=== PATIENT | male | born 1980 | race Caucasian/White ===

== ENCOUNTER 2016-10-11 20:11 | Emergency (ER) | payer BC ==
[2016-10-11 20:18] VITALS: BP 144/74
[2016-10-11] MEDS ORDERED: Lidocaine/Epineph/Tetraca SOL* (LET solution) 4 ML BTL TOPICAL ONE ×2 (20:25→20:31)
--- NOTE | 2016-10-11 20:27 | ED ---
Laceration/Wound HPI - HPI Summary HPI Summary: 36 year old male presents with right hand laceration secondary to a plate. - History of Current Complaint Stated Complaint: HAND LAC Time Seen by Provider: 10/11/16 20:19 - Additional Pertinent History Primary Care Physician: TERE - Allergy/Home Medications Allergies/Adverse Reactions: Allergies Allergy/AdvReac Type Severity Reaction Status Date / Time No Known Allergies Allergy Verified 10/11/16 20:18 PMH/Surg Hx/FS Hx/Imm Hx Previously Healthy: Yes Endocrine/Hematology History: Reports: Hx Diabetes Denies: Hx Thyroid Disease Cardiovascular History: Denies: Hx Hypertension, Hx Pacemaker/ICD Respiratory History: Denies: Hx Asthma, Hx Chronic Obstructive Pulmonary Disease (COPD) GI History: Denies: Hx Ulcer History: Denies: Hx Renal Disease Musculoskeletal History: Reports: Other Musculoskeletal History - left knee arthroscopy Sensory History: Reports: Hx Contacts or Glasses Denies: Hx Hearing Aid Opthamlomology History: Reports: Hx Contacts or Glasses Psychiatric History: Denies: Hx Panic Disorder - Surgical History Surgery Procedure, Year, and Place: left knee 2004 - arthroscopic (shaved down bones) - Immunization History Date of Influenza Vaccine: 2012 Infectious Disease History: No Infectious Disease History: Denies: Hx Clostridium Difficile, Hx Hepatitis, Hx Human Immunodeficiency Virus (HIV), Hx of Known/Suspected MRSA, Hx Shingles, Hx Tuberculosis, Hx Known/ Suspected VRE, Hx Known/Suspected VRSA, History Other Infectious Disease, Traveled Outside the [place] in Last 30 Days - Family History Known Family History: Positive: Other - MS - Social History Alcohol Use: Occasionally Hx Substance Use: No Substance Use Type: Reports: None Hx Tobacco Use: No Smoking Status (MU): Never Smoked Tobacco Review of Systems Constitutional: Negative Eyes: Negative ENT: Negative Cardiovascular: Negative Respiratory: Negative Gastrointestinal: Negative Genitourinary: Negative Positive: Other - right hand laceration All Other Systems Reviewed And Are Negative: Yes Physical Exam Triage Information Reviewed: Yes Vital Signs On Initial Exam: Initial Vitals Temp Pulse Resp BP Pulse Ox 36.2 C 71 18 144/74 100 10/11/16 20:15 10/11/16 20:15 10/11/16 20:15 10/11/16 20:15 10/11/16 20:15 Vital Signs Reviewed: Yes Skin: Positive: Other - right hand laceration Head/Face: Positive: Normal Head/Face Inspection Eyes: Positive: Normal ENT: Positive: Normal ENT inspection Neck: Positive: Supple Respiratory/Lung Sounds: Positive: Clear to Auscultation Cardiovascular: Positive: Normal Abdomen Description: Positive: Nontender Musculoskeletal: Positive: Normal Procedures - Laceration/Wound Repair 1 Location: upper extremity Description: Irregular Anesthesia: Local, 1.0% Length, Depth and Shape: < 2.5 cm Betadine Prep?: Yes Laceration/Wound Explored: clean Closure: Single Layer Debridement: minimal Suture Type: Prolene - 5.0 Number of Sutures: 4 Sterile Dressing Applied?: Yes Diagnostics - Vital Signs Vital Signs Temp Pulse Resp BP Pulse Ox 10/11/16 20:15 36.2 C 71 18 144/74 100 - Laboratory Lab Statement: Any lab studies that have been ordered have been reviewed, and results considered in the medical decision making process. Laceration Repair Course/Dx - Clinical Impression Provider Diagnoses: Laceration of hand Discharge - Discharge Plan Condition: Stable Disposition: HOME Prescriptions: Cephalexin CAP* [Keflex CAP*] 500 mg PO TID #30 cap Patient Education Materials: Laceration (ED) Referrals: Ramon Amezcua MD [Primary Care Provider] -
[2016-10-11] MEDS ORDERED: Cephalexin CAP* 500 MG PO ONE (21:16)
== END 2016-10-11 21:23 | disposition home or self-care (01) ==
LOC: UCEAST 20:11
DX: S61.411A Laceration without foreign body of right hand, initial encounter (principal); W45.8XXA Other foreign body or object entering through skin, initial encounter; Y93.9 Activity, unspecified; Y92.9 Unspecified place or not applicable; E11.9 Type 2 diabetes mellitus without complications
CPT/HCPCS: 12001; 99212; A9270-GY; G0463

== ENCOUNTER 2018-02-05 22:57 | Emergency (ER) | payer BC ==
[2018-02-06 00:21] LABS: ABS Basophils 0 10^3/ul (0-0.2); ABS Eosinophils 0.2 10^3/ul (0-0.6); ABS Lymphocytes 3.3 10^3/ul (1.0-4.8); ABS Monocytes 0.4 10^3/ul (0-0.8); ABS Nucleated RBC 0 10^3/ul; Eosinophil % 2.7 %; Hematocrit 47 % (42-52); Hemoglobin 16.3 g/dl (14.0-18.0); Lymphocyte % 41.4 %; Mean Corpuscular HGB Conc 35 g/dl (31-36); Mean Corpuscular Hemoglobin 30 pg (27-31); Mean Corpuscular Volume 85 fL (80-94); Mean Platelet Volume 7.5 fL (7.4-10.4); Nucleated Red Blood Cells % 0.2; Platelet Count 267 10^3/ul (150-450); Red Blood Count 5.49 10^6/ul (4.00-5.40); Red Cell Distribution Width 13 % (10.5-15)
[2018-02-06 02:02] LABS: Urine Appearance Clear; Urine Blood Negative (Negative); Urine Color Yellow; Urine Ketones Negative (Negative); Urine Protein Negative (Negative); Urine Specific Gravity 1.025 (1.010-1.030); Urine Urobilinogen Negative (Negative)
--- NOTE | 2018-02-06 02:05 | ED ---
Upper Extremity Pain - HPI Summary HPI Summary: Patient with history of MS and baseline right upper extremity weakness complains of new onset numbness and tingling in the third and fourth digits of right hand x 1.5 days. Patient concerned this is a MS exacerbation. Denies any other symptoms or change in Baseline functioning. Denies fever, cough, sore throat, CP, SOB, N/V/D, bowel pain, change in urine, change in BM. Patient states he had MRI 1 month ago in [place] with no new findings. Patient states she has appointment in April with Dr. Whitfield who is local neurologist. Patient states he is taking Avenox every Saturday for multiple sclerosis. Medical history CVA, DM, MS. Also taking metformin. - History of Current Complaint Chief Complaint: EDExtremityUpper Stated Complaint: RT HAND NUMBNESS Time Seen by Provider: 02/05/18 23:42 Hx Obtained From: Patient Mechanism Of Injury: Unknown Onset/Duration: Started Days Ago Timing: Constant Severity Initially: Mild Severity Currently: Mild Pain Location: Finger Aggravating Factor(s): Nothing Alleviating Factor(s): Nothing Associated Signs & Symptoms: Positive: Numbness/Tingling - Allergies/Home Medications Allergies/Adverse Reactions: Allergies Allergy/AdvReac Type Severity Reaction Status Date / Time No Known Allergies Allergy Verified 02/05/18 23:11 PMH/Surg Hx/FS Hx/Imm Hx Endocrine/Hematology History: Reports: Hx Diabetes Denies: Hx Thyroid Disease Cardiovascular History: Denies: Hx Hypertension, Hx Pacemaker/ICD Respiratory History: Denies: Hx Asthma, Hx Chronic Obstructive Pulmonary Disease (COPD) GI History: Denies: Hx Ulcer History: Denies: Hx Dialysis, Hx Renal Disease Musculoskeletal History: Reports: Other Musculoskeletal History - left knee arthroscopy Sensory History: Reports: Hx Contacts or Glasses Denies: Hx Hearing Aid Opthamlomology History: Reports: Hx Contacts or Glasses Psychiatric History: Denies: Hx Panic Disorder - Surgical History Surgery Procedure, Year, and Place: left knee 2004 - arthroscopic (shaved down bones) - Immunization History Date of Influenza Vaccine: 2012 Infectious Disease History: No Infectious Disease History: Denies: Hx Clostridium Difficile, Hx Hepatitis, Hx Human Immunodeficiency Virus (HIV), Hx of Known/Suspected MRSA, Hx Shingles, Hx Tuberculosis, Hx Known/ Suspected VRE, Hx Known/Suspected VRSA, History Other Infectious Disease, Traveled Outside the [place] in Last 30 Days - Family History Known Family History: Positive: Other - MS - Social History Alcohol Use: Occasionally Hx Substance Use: No Substance Use Type: Reports: None Hx Tobacco Use: No Smoking Status (MU): Never Smoked Tobacco Review of Systems Constitutional: Negative Eyes: Negative ENT: Negative Cardiovascular: Negative Respiratory: Negative Gastrointestinal: Negative Genitourinary: Negative Musculoskeletal: Negative Skin: Negative Positive: Paresthesia Psychological: Normal All Other Systems Reviewed And Are Negative: Yes Physical Exam - Summary Physical Exam Summary: Neuro exam normal. [employer] Work[employer] strength less on right side than left side which patient states is at baseline. PMS intact on right side. Numbness and tingling localized to the third and fourth digits of right hand only. Physical exam otherwise unremarkable. Triage Information Reviewed: Yes Vital Signs On Initial Exam: Initial Vitals Temp Pulse Resp BP Pulse Ox 99.7 F 76 16 149/99 97 02/05/18 23:08 02/05/18 23:08 02/05/18 23:08 02/05/18 23:08 02/05/18 23:08 Vital Signs Reviewed: Yes Appearance: Positive: Well-Appearing Skin: Positive: Warm Head/Face: Positive: Normal Head/Face Inspection Eyes: Positive: Normal ENT: Positive: Normal ENT inspection Neck: Positive: Supple Respiratory/Lung Sounds: Positive: Clear to Auscultation Cardiovascular: Positive: Normal Abdomen Description: Positive: Nontender Musculoskeletal: Positive: Normal Neurological: Positive: Normal Psychiatric: Positive: Normal AVPU Assessment: Alert - Manuel[place] Coma Scale Best Eye Response: 4 - Spontaneous Best Motor Response: 6 - Obeys Commands Best Verbal Response: 5 - Oriented Coma Scale Total: 15 Diagnostics - Vital Signs Vital Signs Temp Pulse Resp BP Pulse Ox 02/05/18 23:08 99.7 F 76 16 149/99 97 - Laboratory Lab Results: Lab Results 02/05/18 02/05/18 02/06/18 Range/Units 00:00 23:59 01:45 WBC 8.0 (3.5-10.8) 10^3/ul RBC 5.49 H (4.00-5.40) 10^6/ul Hgb 16.3 (14.0-18.0) g/dl Hct 47 (42-52) % MCV 85 (80-94) fL MCH 30 (27-31) pg MCHC 35 (31-36) g/dl RDW 13 (10.5-15) % Plt Count 267 (150-450) 10^3/ul MPV 7.5 (7.4-10.4) fL Neut % (Auto) 50.1 % Lymph % (Auto) 41.4 % [place] % (Auto) 5.5 % Eos % (Auto) 2.7 % Baso % (Auto) 0.3 % Absolute Neuts (auto) 4.0 (1.5-7.7) 10^3/ul Absolute Lymphs (auto) 3.3 (1.0-4.8) 10^3/ul Absolute Monos (auto) 0.4 (0-0.8) 10^3/ul Absolute Eos (auto) 0.2 (0-0.6) 10^3/ul Absolute Basos (auto) 0 (0-0.2) 10^3/ul Absolute Nucleated RBC 0 10^3/ul Nucleated RBC % 0.2 Sodium 140 (135-145) mmol/L Potassium 4.0 (3.5-5.0) mmol/L Chloride 105 (101-111) mmol/L Carbon Dioxide 28 (22-32) mmol/L Anion Gap 7 (2-11) mmol/L BUN 15 (6-24) mg/dL Creatinine 0.93 (0.67-1.17) mg/dL Est GFR ( Amer) 110.6 (>60) Est GFR (Non-Af Amer) 91.4 (>60) BUN/Creatinine Ratio 16.1 (8-20) Glucose 193 H (70-100) mg/dL Calcium 9.4 (8.6-10.3) mg/dL Total Bilirubin 0.50 (0.2-1.0) mg/dL AST 37 (13-39) U/L ALT 86 H (7-52) U/L Alkaline Phosphatase 80 (34-104) U/L C-Reactive Protein 2.22 (<8.01) mg/L Total Protein 7.4 (6.4-8.9) g/dL Albumin 4.6 (3.2-5.2) g/dL Globulin 2.8 (2-4) g/dL Albumin/Globulin Ratio 1.6 (1-3) Urine Color Yellow Urine Appearance Clear Urine pH 5.0 (5-9) Ur Specific [place] 1.025 (1.010-1.030) Urine Protein Negative (Negative) Urine Ketones Negative (Negative) Urine Blood Negative (Negative) Urine Nitrate Negative (Negative) Urine Bilirubin Negative (Negative) Urine Urobilinogen Negative (Negative) Ur Leukocyte Esterase Negative (Negative) Urine Glucose 3+(>=500 mg/dl) A (Negative) Result Diagrams: 02/05/18 23:59 02/05/18 00:00 Lab Statement: Any lab studies that have been ordered have been reviewed, and results considered in the medical decision making process. Course/Dx - Course Course Of Treatment: Patient with history of MS and baseline right upper extremity weakness complains of new onset numbness and tingling in the third and fourth digits of right hand x 1.5 days. Patient concerned this is a MS exacerbation. Denies any other symptoms or change in Baseline functioning. Denies fever, cough, sore throat, CP, SOB, N/V/D, bowel pain, change in urine, change in BM. Patient states he had MRI 1 month ago in [place] with no new findings. Patient states she has appointment in April with Dr. Whitfield who is local neurologist. Patient states he is taking Avenox every Saturday for multiple sclerosis. Medical history CVA, DM, MS. Also taking metformin. Physical exam: Neuro exam normal. [employer] Work[employer] strength less on right side than left side which patient states is at baseline. PMS intact on right side. Numbness and tingling localized to the third and fourth digits of right hand only. Physical exam otherwise unremarkable. Vital signs within normal limits. Labs unremarkable. Discussed patient with Dr. Owens neurology on-call who stated MS exacerbation very unlikely given such localized symptoms. Stated patient could be discharged home and follow-up in clinic. Patient understands and improves with plan. - Diagnoses Provider Diagnoses: Numbness and tingling in right hand Discharge - Sign-Out/Discharge Documenting (check all that apply): Patient Departure - Discharge Plan Condition: Stable Disposition: HOME Patient Education Materials: Multiple Sclerosis (DC) Referrals: Daniele Sparks PA [Primary Care Provider] - Additional Instructions: Dr. Owens of the neurology group has been made aware of your visit here today and advises you to follow-up with the clinic for further evaluation. Return to the ED for any new or worsening symptoms. - Billing Disposition and Condition Condition: STABLE Disposition: Home
[2018-02-06 02:23] VITALS: BP 146/92
== END 2018-02-06 02:22 | disposition home or self-care (01) ==
LOC: ED 22:57
DX: R53.1 Weakness (principal); R20.0 Anesthesia of skin
CPT/HCPCS: 36415; 80053; 81003; 85025; 86140; 99282

== ENCOUNTER 2019-02-28 13:15 | Emergency (ER) | payer BC ==
--- NOTE | 2019-02-28 13:56 | ED ---
Lower Extremity - HPI Summary HPI Summary: 38 y/o male presented to [facility] with CC of numbness and tingling in right foot. Sx onset two days ago. He notes that the numbness and tingling is more significant at the top of his foot. The patient also complains of lower back pain worsened by palpation that radiates down the RLE. Patient claims back was injured when lifting heavy objects. He is able to walk, some right-sided weakness noted. Urination and bowel movements are normal. The patient currently sees Dr. Dias at [facility] and Dr. Amanda in [place] for MS treatment. He also takes Metformin, Atorvastatin. - History of Current Complaint Chief Complaint: EDExtremityLower Stated Complaint: RIGHT FOOT NUMB Time Seen by Provider: 02/28/19 13:31 Hx Obtained From: Patient Mechanism Of Injury: Other - lifting heavy objects Onset of Pain: Days Onset/Duration: Days Pain Intensity: 0 Timing: Constant Location: Is Discrete @ - right foot Associated Signs And Symptoms: Positive: Weakness, Other - positive - numbness, tingling Able to Bear Weight: Yes - Allergies/Home Medications Allergies/Adverse Reactions: Allergies Allergy/AdvReac Type Severity Reaction Status Date / Time No Known Allergies Allergy Verified 03/05/18 15:57 PMH/Surg Hx/FS Hx/Imm Hx Endocrine/Hematology History: Reports: Hx Diabetes Denies: Hx Thyroid Disease Cardiovascular History: Denies: Hx Hypertension, Hx Pacemaker/ICD Respiratory History: Denies: Hx Asthma, Hx Chronic Obstructive Pulmonary Disease (COPD) GI History: Denies: Hx Ulcer History: Denies: Hx Dialysis, Hx Renal Disease Musculoskeletal History: Reports: Other Musculoskeletal History - left knee arthroscopy Sensory History: Reports: Hx Contacts or Glasses Denies: Hx Hearing Aid Opthamlomology History: Reports: Hx Contacts or Glasses Psychiatric History: Denies: Hx Panic Disorder - Surgical History Surgery Procedure, Year, and Place: left knee 2004 - arthroscopic (shaved down bones) - Immunization History Date of Influenza Vaccine: 2012 Infectious Disease History: No Infectious Disease History: Denies: Hx Clostridium Difficile, Hx Hepatitis, Hx Human Immunodeficiency Virus (HIV), Hx of Known/Suspected MRSA, Hx Shingles, Hx Tuberculosis, Hx Known/ Suspected VRE, Hx Known/Suspected VRSA, History Other Infectious Disease, Traveled Outside the [place] in Last 30 Days - Family History Known Family History: Positive: Other - MS - Social History Alcohol Use: Occasionally Hx Substance Use: No Substance Use Type: Reports: None Hx Tobacco Use: No Smoking Status (MU): Never Smoked Tobacco Review of Systems Negative: Fever - vitals show temp at 97.3F Positive: Other - positive - lower back pain Positive: Weakness, Paresthesia, Numbness All Other Systems Reviewed And Are Negative: Yes Physical Exam - Summary Physical Exam Summary: Appearance: The patient is well-nourished in no acute distress and in no acute pain. Skin: The skin is warm and dry, and skin color reflects adequate perfusion. HEENT: The head is normocephalic and atraumatic. The pupils are equal and reactive. The conjunctivae are clear and without drainage. Nares are patent and without drainage. Mouth reveals moist mucous membranes, and the throat is without erythema and exudate. The external ears are intact. The ear canals are patent and without drainage. The tympanic membranes are intact. Neck: The neck is supple with full range of motion and non-tender. There are no carotid bruits. There is no neck vein distension. Respiratory: Chest is non-tender. Lungs are clear to auscultation and breath sounds are symmetrical and equal. Cardiovascular: Heart is regular rate and rhythm. There is no murmur or rub auscultated. There is no peripheral edema and pulses are symmetrical and equal. Abdomen: The abdomen is soft and non-tender. There are normal bowel sounds heard in all four quadrants and there is no organomegaly palpated. Musculoskeletal: Patient is tender in the right sciatic area. Extremities are non-tender with full range of motion. There is good capillary refill. There is no peripheral edema or calf tenderness elicited. Neurological: Patient is alert and oriented to person, place and time. The patient is weak to dorsiflexion on the right foot. Cranial nerves are grossly intact. Deep tendon reflexes are symmetrical and equal in all four extremities. Psychiatric: The patient has an appropriate affect and does not exhibit any anxiety or depression. Triage Information Reviewed: Yes Vital Signs On Initial Exam: Initial Vitals Temp Pulse Resp BP Pulse Ox 97.3 F 86 16 134/90 98 02/28/19 13:17 02/28/19 13:17 02/28/19 13:17 02/28/19 13:17 02/28/19 13:17 Vital Signs Reviewed: Yes Procedures - Sedation Patient Received Moderate/Deep Sedation with Procedure: No Diagnostics - Vital Signs Vital Signs Temp Pulse Resp BP Pulse Ox 02/28/19 13:17 97.3 F 86 16 134/90 98 - Laboratory Lab Statement: Any lab studies that have been ordered have been reviewed, and results considered in the medical decision making process. - Radiology LUMBAR MRI Radiology Interpretation Completed By: Radiologist Summary of Radiographic Findings: IMPRESSION: MULTILEVEL DEGENERATIVE DISC DISEASE AND FACET OSTEOARTHRITIS WITH CHANGES. MOST PROMINENT AT THE L4-L5 AND L5-S1 LEVELS DESCRIBED. THIS REPORT WAS REVIEWED BY ED PHYSICIAN. Re-Evaluation - Re-Evaluation First Eval Re-Evaluation Time: 16:06 Comment: Transfer center contacted, report given. It is noted at this time by the patient's that the patient has memory issues and the patient's weakness is not acute and is chronic secondary to his MS. Second Eval Re-Evaluation Time: 17:04 Comment: Transfer center reached once more. Patient will be discharged to home as opposed to transferred Lower Extremity Course/Dx - Course Course Of Treatment: Gurpreet came in complaining of 2 days of numbness on the dorsum of his right foot. He also had sciatic pain down the right leg and in his right lower back which he has had for quite some time. On my exam he was found to be weak to dorsiflexion of his right leg and for that reason I consulted with Dr. Danielle and obtained an MRI scan. When his presented she reports that secondary to his MS he has had some weakness of his right side and also memory problems. The MRI scan showed no surgical issue. He does have a herniated disc. I'm treating him symptomatically with steroids and muscle relaxers and recommended follow-up. - Diagnoses Provider Diagnoses: Sciatica - Physician Notifications Discussed Care Of Patient With: Arturo Danielle Time Discussed With Above Provider: 13:44 Instructed by Provider To: Other - Patient's case was discussed with Dr. Danielle. Dr. Danielle recommends MRI of back. At 13:48 patient's case discussed with Dr. Martinez, Radiologist. Dr. Martinez approves MRI of patient. Discharge ED - Sign-Out/Discharge Documenting (check all that apply): Patient Departure - DC - Discharge Plan Condition: Stable Disposition: HOME Prescriptions: HYDROcodone/ACETAMIN 5-325 MG* [Echo 5-325 TAB*] 1 tab PO Q6H PRN #20 tab MDD 4 PRN Reason: Pain LORazepam TAB(*) [Ativan TAB(*)] 1 mg PO Q6H PRN #20 tab MDD 4 PRN Reason: Pain LORazepam TAB(*) [Ativan TAB(*)] 1 mg PO Q6H PRN #20 tab MDD 4 PRN Reason: Pain predniSONE [Prednisone 20 MG TAB] 20 mg PO BID #8 tablet predniSONE [Prednisone 20 MG TAB] 20 mg PO BID #8 tablet Patient Education Materials: Sciatica (ED) Referrals: Ramon Amezcua MD [Primary Care Provider] - Additional Instructions: Follow up with Primary Care Physician in 1-3 days. If you experience new or worsening symptoms please return to the ER. - Billing Disposition and Condition Condition: STABLE Disposition: Home - Attestation Statements Document Initiated by Bruna: Yes Documenting Scribe: SONYA LANDA Provider For Whom Bruna is Documenting (Include Credential): TATO MERRITT MD Scribe Attestation: SONYA Goldberg, scribed for TTAO MERRITT MD on 03/02/19 at 1559. Scribe Documentation Reviewed: Yes Provider Attestation: The documentation as recorded by the SONYA bartlett accurately reflects the service I personally performed and the decisions made by me, TATO MERRITT MD Status of Scribe Document: Viewed
[2019-02-28 17:44] VITALS: BP 140/81
== END 2019-02-28 17:40 | disposition home or self-care (01) ==
LOC: ED 13:15
DX: M54.30 Sciatica, unspecified side (principal); M51.37 Other intervertebral disc degeneration, lumbosacral region; E11.9 Type 2 diabetes mellitus without complications; Z79.84 Long term (current) use of oral hypoglycemic drugs; Z79.899 Other long term (current) drug therapy
CPT/HCPCS: 72148; 99282